=== PATIENT | female | born 1950 ===

== ENCOUNTER → 2018-08-17 22:22 | Outpatient (ROUT) | payer SELFPAY ==
[2018-08-17 23:45] LABS: Albumin 4.2 g/dL (3.5-5.0); Blood Urea Nitrogen 15 mg/dL (7-17); Calcium 9.9 mg/dL (8.4-10.2); Carbon Dioxide 31 mmol/L (22-32); Chloride 102 mmol/L (98-107); Estimated Glomerular Filt Rate > 60.0 mL/min (>60); Glucose 163 mg/dL (80-110); HEMOLYSIS < 15 (0-50); Sodium 140 mmol/L (137-145)
[2018-08-18] LABS: B Type Natriuretic Peptide < 100 (<100)
[2018-08-18 01:25] LABS: Hemoglobin A1C% w Est Avg Glu 7.6 % (4.0-6.0)
== END ==
PROVIDERS: Visit Provider Family Medicine
DX: E10.9 Type 1 diabetes mellitus without complications (principal)
CPT/HCPCS: 36415; 80069; 83036; 83880